=== PATIENT | male | born 1980 | race Hispanic/Latino ===

== ENCOUNTER 2019-10-06 13:28 | Emergency (ER) | payer OTHER, SELFPAY ==
[2019-10-06] VITALS (35 sets, daily range): BP systolic 114–156; BP diastolic 76–98; PULSE 75–108; RESP 14–25; TEMP 36.7–36.9; O2SAT 90–100
--- NOTE | ~2019-10-06 | XR_ITS ---
XR chest 1V portable DATE: 10/06/2019 14:14 INDICATION: Cough, dyspnea TECHNIQUE: Portable AP chest on 10/06/2019 at 1410 hours COMPARISON: None FINDINGS: Normal heart size. No hilar or mediastinal enlargement. No pulmonary infiltrate or consolid ation, pleural effusion or pulmonary vascular congestion or pneumothorax. IMPRESSION: No active cardiopulmonary disease Reviewed, dictated and finalized at location A.
--- NOTE | ~2019-10-06 | CT_ITS ---
EXAMINATION: CTA chest PE protocol DATE: 10/06/2019 17:03 INDICATION: Shortness of breath, elevated troponin TECHNIQUE: Computed tomography angiography (CTA) of the chest was performed with 100 mL Omnipaque-350 intravenous contrast timed to evaluate the pulmonary arteries. Coronal maximum intensity projection 3D-reconstructions were created by the technologist. The dose-length product (DLP) was 497.07 mGy-cm. Automated exposure control and iterative reconstruction technique were employed. COMPARISON: None. FINDINGS: The pulmonary arteries are well-opacified. Sensitivity slightly limited by motion artifact however, no pulmonary embolism is identified. The lungs are free of acute opacities. There is no ple ural effusion or pneumothorax. No pathologically enlarged thoracic lymph nodes are identified. The he art size is normal. IMPRESSION: 1. No pulmonary embolism or acute cardiopulmonary abnormality, sensitivity of subsegmental pulmonary arterial branches somewhat limited by respiratory motion. Reviewed, dictated and finalized at location A. IMPRESSION: 1. No pulmonary embolism or acute cardiopulmonary abnormality, sensitivity of s ubsegmental pulmonary arterial branches somewhat limited by respiratory motion.
--- NOTE | 2019-10-06 13:54 | ED.GENADULT ---
HPI - General Adult General Chief complaint: Shortness of Breath/Dyspnea Stated complaint: SOB Time Seen by Provider: 10/06/19 13:52 Source: patient Mode of arrival: ambulatory Limitations: no limitations History of Present Illness HPI narrative: Patient is a 39-year-old male with a history of borderline hypertension, hyperlipidemia who presents for evaluation of shortness of breath and dry cough. Patient reports 3 weeks of symptoms. He denies chest pain, denies hemoptysis. He denies any phlegm production. No fever or chills. Patient has had some myalgias, mild nausea without vomiting and some diarrhea. No sick contacts at home. Patient does not have any recent travel and lives in [place]. Patient states he is worried about possible coronavirus given his symptoms. No rhinorrhea or congestion. No lower leg swelling or pain. Related Data Allergies Allergy/AdvReac Type Severity Reaction Status Date / Time No Known Allergies Allergy Verified 10/06/19 14:01 Review of Systems Review of Systems: Narrative: CONSTITUTIONAL: Denies fever, chills, or sweats. EYES: Denies visual changes, redness, or discharge. ENT: Denies rhinorrhea, congestion, sore throat, or otalgia. CARDIOVASCULAR: Denies chest pain, palpitations, or edema. RESPIRATORY: Reports cough and shortness of breath GASTROINTESTINAL: Denies abdominal pain, reports nausea, no vomiting GENITOURINARY: Denies dysuria or hematuria. SKIN: Denies rash or itching. MUSCULOSKELETAL: Denies back pain, joint pain, reports myalgias NEUROLOGIC: Denies headache, numbness, or weakness. [facility] Past Medical History Medical History (Updated 10/06/19 @ 15:54 by Sanjuana Schneider MD) Hyperlipidemia Hypertension Surgical History Surgical History (Updated 10/06/19 @ 14:29 by Sanjuana Schneider MD) History of appendectomy Social History Social History (Updated 10/06/19 @ 14:29 by Sanjuana Schneider MD) Smoking status: Never smoker Alcohol intake: never Substance use: never Living arrangements: with family Gender identity (if verbalized by the patient): Male Exam Narrative: Exam Narrative: GENERAL: Awake, alert, conversant HEAD: Normocephalic, atraumatic. EYES: PERRLA and EOMI. ENT: Nares clear, no rhinorrhea or epistaxis. Mucous membranes moist. NECK: Supple. CHEST: No respiratory distress, breathing even and non labored no audible wheezing HEART: Tachycardic rate, sinus rhythm ABDOMEN:Non distended, non tender EXTREMITIES: Normal range of motion. No edema. SKIN: Warm, dry, no rash. NEURO:No focal deficits. Alert and oriented x3 Course Vital Signs Vital signs: Vital Signs Temperature 36.9 C 10/06/19 13:58 Pulse Rate 100 10/06/19 13:58 Respiratory Rate 20 10/06/19 13:58 Blood Pressure 148/93 H 10/06/19 13:58 Pulse Oximetry 99 10/06/19 13:58 Temperature 36.9 C 10/06/19 13:58 Pulse Rate 100 10/06/19 13:58 Respiratory Rate 10/06/19 13:58 Blood Pressure 148/93 H 10/06/19 13:58 Pulse Oximetry 99 10/06/19 14:01 Medical Decision Making MDM Narrative Medical decision making narrative: Patient presenting for evaluation of cough and shortness of breath. At the time of initial assessment ABCs are intact and vital signs are stable. No respiratory distress. No audible wheezing. No severe [place]'s coronavirus type features on exam. Patient has had symptoms for over 3 weeks at this point. It seems more consistent with bronchitis type symptoms. Patient is not a smoker. Laboratory results are reassuring. Patient has no chest pain, chest x-ray without evidence of pneumonia or infiltrates. D-dimer is not elevated, thus I doubt PE. Advised patient we can treat like upper respiratory infection, we also do a COVID swab although he does not have severe features that would warrant admission at this point. Patient was then discharged home in stable condition, advised to quarantine until his results of his COVID swab are called to him.
--- NOTE | 2019-10-06 14:05 | ECG_ITS ---
Measurements Intervals [place] Rate: 97 P: 69 SC: 148 QRS: -38 QRSD: 95 T: -2 QT: 342 QTc: 436 Interpretive Statements SINUS RHYTHM LEFT AXIS DEVIATION DELAYED PRECORDIAL R/S TRANSITION BORDERLINE T WAVE ABNORMALITY- INFERIOR LEADS BASELINE WANDER- II, III, V2-V6 BORDERLINE ECG Electronically Signed On 10-06-2019 15:56:45 CDT by Prudencio Copeland D.O.
[2019-10-06 14:27] LABS: Basophils Absolute Auto 0.1 K/mm3 (0.0-0.1); Basophils Percent Auto 0.9 % (0.2-1.2); Eosinophils Absolute Auto 0.8 K/mm3 (0-0.3); Eosinophils Percent Auto 9.8 % (0-4.4); Hematocrit 52.5 % (42.0-52.0); Hemoglobin 17.8 g/dL (14.0-18.0); Immature Granulocyte Absolute 0.04 K/mm3 (0.00-0.031); Immature Granulocyte Percent A 0.5 % (0-0.5); Lymphocytes Absolute Auto 1.83 K/mm3 (0.9-3.2); Lymphocytes Percent Auto 23.4 % (18.3-44.2); Mean Corpuscular HGB Conc 33.9 g/dl (32-36); Mean Corpuscular Hemoglobin 28.4 pg (26-34); Mean Corpuscular Volume 83.9 fl (80-100); Mean Platelet Volume 11.3 fl (7.4-10.4); Monocytes Absolute Auto 0.6 K/mm3 (0.1-0.6); Monocytes Percent Auto 7.7 % (2.6-8.5); Neutrophils Absolute Auto 4.5 K/mm3 (1.3-6.7); Neutrophils Percent Auto 57.7 % (45.5-73.1); Platelet Count Result 220 k/mm3 (150-375); Red Blood Count 6.26 M/mm3 (4.6-6.20); Red Cell Distribution Width 12.4 % (11.5-14.5); White Blood Count 7.8 K/mm3 (4.5-10.0)
[2019-10-06 14:38] LABS: Blood Urea Nitrogen 15 mg/dL (9-20); Calcium 9.5 mg/dL (8.4-10.2); Carbon Dioxide 30 mmol/L (22-30); Chloride 99 mmol/L (98-107); Estimated Glomerular Filt Rate > 60; Glucose 201 mg/dL (75-110); Potassium 4.2 mmol/L (3.4-5.0); Sodium 138 mmol/L (137-145)
[2019-10-06 14:46] LABS: Prothrombin Time 13.2 Seconds (11.1-14.7)
[2019-10-06 14:47] LABS: Partial Thromboplastin Time 27.7 SECONDS (22.3-36.8)
--- NOTE | 2019-10-06 14:48 | PC.NURSE ---
Called to add on d-dimer.
[2019-10-06 14:53] LABS: Troponin I 0.021 ng/mL (0.000-0.034)
[2019-10-06 15:24] LABS: D Dimer 0.27 ug/mL (<0.48)
[2019-10-06] MEDS: MAGNESIUM SULF 2 GM/WATER 50ML 2 GM/50 ML BAG IVPB (16:50)
[2019-10-06] MEDS: methylPREDNISolone SOD SUCC 125 MG VIAL IV PUSH (16:50)
[2019-10-06 17:00] LABS: Troponin I < 0.012 ng/mL (0.000-0.034)
[2019-10-06] MEDS: ALBUTEROL SULFATE (*SP) AEROSOL 1 PUFF 2 PUFF INHALATION (17:06)
[2019-10-06 19:01] LABS: Troponin I < 0.012 ng/mL (0.000-0.034)
[2019-10-07 13:52] LABS: SARS-CoV-2 RNA PCR Negative
== END 2019-10-06 19:45 | disposition home or self-care (01) ==
PROVIDERS: Emergency Provider Emergency Medicine
DX: J40 Bronchitis, not specified as acute or chronic (principal); R06.00 Dyspnea, unspecified; Z20.828 Contact with and (suspected) exposure to other viral communicable diseases; R03.0 Elevated blood-pressure reading, without diagnosis of hypertension; E78.5 Hyperlipidemia, unspecified
CPT/HCPCS: 36415; 71045; 71275; 80048; 84484; 85025; 85380; 85610; 85730; 87635; 93005; 96365; 96375; 99284; A9270; C9803; J2930; J3475; Q9967; U0003